=== PATIENT | male | born 1960 | race Caucasian/White ===

== ENCOUNTER 2017-10-18 16:38 | Emergency (ER) | payer MEDICAID ==
[~2017-10-18] VITALS: Ht 172.7 cm; Wt 103.9 kg
[2017-10-18] MEDS ORDERED: LASIX 40 MG TAB40 M2 PO (16:53)
[2017-10-18 17:41] LABS: ABSOLUTE BASOPHILS 0.1 thou/uL (0.0-0.2); ABSOLUTE LYMPHOCYTES 1.2 thou/uL (0.8-5.3); ABSOLUTE MONOCYTES 0.5 thou/uL (0.0-1.2); ABSOLUTE NEUTROPHILS 2.9 thou/uL (1.6-8.1); BASOPHILS 1.2 %; EOSINOPHILS 0.1 %; HEMATOCRIT 43.6 % (42.0-52.0); HEMOGLOBIN 14.8 gm/dL (14.0-18.0); LYMPHOCYTES 25.1 %; MCH 30.3 pg (26.0-34.0); MCV 89.1 fL (80.0-100.0); MONOCYTES 10.9 %; MPV 7.5 fl. (7.2-11.1); NUCLEATED RBCS 0 /100WBC; PLATELET COUNT* 201 thou/uL (150-400); POLYS 62.7 %; RBC 4.89 mil/uL (4.50-6.00); RDW-CV 14.3 % (10.5-14.5); WBC 4.7 thou/uL (4.0-11.0)
[2017-10-18 17:52] LABS: CALCIUM 8.5 mg/dL (8.5-10.1); CREATININE 0.7 mg/dL (0.6-1.3); POTASSIUM 3.6 mmol/L (3.5-5.1)
[2017-10-18 17:59] LABS: ALBUMIN 3.4 g/dL (3.4-5.0); TOTAL BILIRUBIN 0.4 mg/dL (<0.1-1.0); TOTAL PROTEIN 6.9 g/dL (6.4-8.2)
[2017-10-18] MEDS ORDERED: MEDROLDOSEPACK PO (18:10)
[2017-10-18] MEDS ORDERED: ACETAMINOPHEN-1 EAC1 PO (18:10)
[2017-10-18] MEDS ORDERED: PROAIR HFA8.5 GM INH (18:10)
[2017-10-18] MEDS ORDERED: ZPAK PO (18:10)
[2017-10-18 18:31] VITALS: BP 129/75
== END 2017-10-18 18:32 | disposition home or self-care (01) ==
LOC: M.ERS 16:38
PROVIDERS: Physician Assistant
DX: J18.9 Pneumonia, unspecified organism (principal); F17.210 Nicotine dependence, cigarettes, uncomplicated